=== PATIENT | male | born 1965 | race American Indian/Alaskan Native ===

== ENCOUNTER 2018-10-18 18:32 | Emergency (ER) | payer MEDICARE ==
[2018-10-18] VITALS (7 sets, daily range): BP systolic 106–124; BP diastolic 62–82
[~2018-10-18] VITALS: Ht 170.2 cm; Wt 65.8 kg
[~2018-10-18 18:32] MED LIST: ALPR2TAB5 PO; CEFT1VIA IJ; CEFU500T PO; ENOX30DI SQ; FENT1PAT9 TD; INSU100I19 SQ; INSU100V11 SUBCUT; INSU100V9 SQ; LIPA1CAP12 PO; LISI10TA2 PO; MORP5VIA IV; ONDA2VIA3 IV; OXYC30TA PO; PANT40VI IV
[2018-10-18 19:52] LABS: BASOPHIL % 0.2 % (0.0-0.2); EOSINOPHIL # 0.1 10^3/uL (0.0-0.2); EOSINOPHIL % 1.1 % (0.0-5.0); HEMOGLOBIN 14.4 g/dL (13.9-16.3); LYMPHOCYTES % 12.2 % (24.0-44.0); MEAN CELL HGB 31.4 pg (26-34); MEAN CELL HGB CONCENTRATION 36.5 g/dL (33-37); MEAN CORP VOLUME 86.1 fL (78-100); MEAN PLATELET VOLUME 11.9 fL (7.8-11.0); MONOCYTES # 0.7 10^3/uL (0.3-0.8); MONOCYTES % 8.4 % (5.0-12.0); NEUTROPHIL # 6.6 10^3/uL (1.8-7.7); NEUTROPHILS % 77.9 % (41.0-85.0); PLATELET COUNT 101 10^3/uL (150-400); RED CELL DISTRIBUTION WIDTH 13.4 % (11.5-14.5); WHITE BLOOD CELL 8.4 10^3/uL (4.5-11.0)
[2018-10-18] MEDS ORDERED: PHENERGAN ONE (19:53)
[2018-10-18] MEDS ORDERED: NS 1000ML 1,000 ML ONE (19:53)
[2018-10-18] MEDS ORDERED: NS 100ML 100 ML IV ONE (19:54)
[2018-10-18] MEDS: NS 1000ML 1,000 ML IV ONE (20:05)
[2018-10-18] MEDS: PHENERGAN IV STA (20:05)
[2018-10-18] MEDS: DURAMORPH IV STA ×2 (20:05→21:18)
[2018-10-18 20:07] LABS: CALCIUM 8.9 mg/dL (8.4-10.5); CARBON DIOXIDE 25.4 mmol/L (20.0-32)
--- NOTE | 2018-10-18 21:22 | DIREP ---
PROCEDURE:CT ABDOMEN/PELVIS W/ CONTRAST COMPARISON:[facility] [place], CT, CT ABD/PELVIS W/O, 07/30/2017, 08:10 PM. INDICATIONS:Eval for L perirectal abscess TECHNIQUE:Axial images were created through the abdomen and pelvis with non-ionic intravenous contrast material. No oral contrast was administered. Sagittal and coronal reconstructions were performed from source images. FINDINGS: LUNG BASES:There are 2 stable sub cm nodules in the right middle lobe. LIVER:Normal. No significant liver lesions are identified. BILIARY:Cholecystectomy clips. PANCREAS:Multiple calcifications along an atrophic pancreas, consistent with chronic pancreatitis. SPLEEN:There are several tiny splenic calcifications consistent with benign granulomas. Spleen measures 13.2 cm in craniocaudal length; borderline to mild splenomegaly. ADRENALS:Normal. No mass or enlargement. URINARY TRACT:Normal. No focal lesions or hydronephrosis. AORTA/VASCULAR:Scattered calcifications. No aneurysm. RETROPERITONEUM:Multiple stable calcifications along the left anterior perinephric/dural does fascia likely due to old postinflammatory change. Stable left retroperitoneal fatty area along the inferior lateral aspect of the left kidney. BOWEL/MESENTERY:GI tract not optimally visualized due to lack of oral contrast administration. No intestinal obstruction, free air, or free fluid. Appendix not well demonstrated. No evidence of appendicitis. There is a left perianal fluid collection, 2.9 x 1.9 x 2.4 cm, consistent with abscess. ABDOMINAL WALL:Normal. No mass or hernia. PELVIC ORGANS:Normal. No visible mass. Pelvic organs appropriate for patient age. BONES:Normal for age. No bony lesion or acute fracture. OTHER:Negative. CONCLUSION: 1. There is a left perianal abscess. 2. No definite wall thickening identified in the rectum or other portions the colon. GI tract not optimally visualized due to lack of oral contrast administration. 3. Previous cholecystectomy. 4. Chronic pancreatitis. 5. Stable appearing left retroperitoneal dystrophic calcification and left perinephric fat collection. 6. Stable sub cm right middle lobe nodules. 7. Please see above discussion for details of other findings. Dictated by: Rohit Alexandra M.D. on 10/18/2018 at 09:07 PM
[2018-10-18] MEDS ORDERED: HUMULIN R IV ONE (21:30)
--- NOTE | 2018-10-18 21:31 | NUR ---
KEVIN Dumont CRNA is called out for concious sedation procedure.
--- NOTE | 2018-10-18 21:35 | NUR ---
Consent Consents signed for sedation
--- NOTE | 2018-10-18 21:40 | NUR ---
KEVIN Dumont at patients bedside
--- NOTE | 2018-10-18 21:45 | ER.PDOC ---
General Chief Complaint: Requesting Medical Care Stated Complaint: ABSCESS Time seen by MD: 19:20 Source: patient Exam Limitations: no limitations History of Present Illness Initial Comments Pt notes mildly painful area to left perianal region 6 days ago. Area has become swollen and exquisitely tender since. No fever. Timing/Duration: other (6 days) Severity: severe Location: perirectal Quality: painful Identified Cause: no Prior symptoms/Treatment: No Similar symptoms previous, No Recenly Seen, No Treated by Doctor, No Recently Hospitalized Allergies: Coded Allergies: No Known Allergies (Unverified , 10/26/13) Home Meds Reported Medications Lisinopril (LISINOPRIL) 10 Mg Tablet, 10 MG PO DAILY, TABLET 10/26/13 Insulin Detemir (LEVEMIR) 100 Unit/1 Ml Insuln.pen, 20 UNIT SQ HS 10/26/13 Insulin Glulisine (APIDRA) 100 Unit/1 Ml Vial, 15 UNIT SQ ac, VIAL 10/26/13 Past Medical History Surgical History: knee Social History Drug Use: none Constitutional: no symptoms reported EENTM: no symptoms reported Respiratory: no symptoms reported Cardiovascular: no symptoms reported Gastrointestinal: no symptoms reported Genitourinary: no symptoms reported Musculoskeletal: no symptoms reported Skin: lesions Psychiatric/Neurological: no symptoms reported Endocrine: no symptoms reported Physical Exam General Appearance: alert, moderate distress Skin: warm/dry, nml color, abscess, tender indurated area (L perianal), fluctuant Character: erythematous With: warmth, tenderness, swelling Extremities: non-tender, nml ROM, no edema EENT: eyes nml inspection, lips/gums nml, pharynx nml Neck: trachea midline, no swelling Respiratory: no resp. distress, breath sounds nml CVS: reg. rate & rhythm, heart sounds nml Abdomen: non-tender, no organomegaly Rectal: other (Swollen, red, tender L perianal mass) NEURO/PSYCH: oriented x 3, CN's nml as tested, motor nml, sensation nml, mood/affect nml Incision and Drainage Incision and Drainage : Site: Left perianal Blade Size: 11 I & D Procedure: betadine prep, sterile drapes applied, pack with gauze, probe/break up loculation Progress Procedural sedation supplied by anesthesiologist.during procedure. No complications Results/Orders Results/Orders Orders - KACEY JUNG MD Start Iv (10/18/18 19:26) Cbc With Auto Diff (10/18/18 19:26) Basic Metabolic Panel (10/18/18 19:26) 0.9 % Sodium Chloride (Ns 1000ml) (10/18/18 19:30) Morphine Sulfate/Pf (Duramorph) (10/18/18 19:26) Promethazine Hcl (Phenergan) (10/18/18 19:26) Ct Abd/Pel With Iv Contrast (10/18/18 19:26) 0.9 % Sodium Chloride (Ns 1000ml) (10/18/18 19:53) Promethazine Hcl (Phenergan) (10/18/18 19:53) 0.9 % Sodium Chloride (Ns 100ml) (10/18/18 19:54) Morphine Sulfate/Pf (Duramorph) (10/18/18 20:39) Insulin Regular, Human (Humulin R) (10/18/18 21:30) Administered Medications Medications (Trade) Dose Ordered Sig/Pawan Route PRN Reason Start Time Stop Time Status Last Admin Dose Admin Morphine Sulfate (Duramorph) 4 mg OT STAT IV 10/18/18 19:26 10/18/18 19:36 DC 10/18/18 20:05 4 MG Morphine Sulfate (Duramorph) 4 mg OT STAT IV 10/18/18 20:39 10/18/18 20:41 DC 10/18/18 21:18 4 MG Promethazine HCl (Phenergan) 12.5 mg OT STAT IV 10/18/18 19:26 10/18/18 19:36 DC 10/18/18 20:05 12.5 MG Sodium Chloride 1,000 ml @ 0 mls/hr Q0M ONCE IV 10/18/18 19:30 10/18/18 19:36 DC 10/18/18 20:05 1,000 MLS/HR Laboratory Tests Test 10/18/18 19:40 White Blood Count 8.4 10^3/uL (4.5-11.0) Red Blood Count 4.59 10^6/uL (4.50-5.90) Hemoglobin 14.4 g/dL (13.9-16.3) Hematocrit 39.5 % (37.0-53.0) Mean Corpuscular Volume 86.1 fL (78-100) Mean Corpuscular Hemoglobin 31.4 pg (26-34) Mean Corpuscular Hemoglobin Concent 36.5 g/dL (33-37) Red Cell Distribution Width 13.4 % (11.5-14.5) Platelet Count 101 10^3/uL (150-400) L Mean Platelet Volume 11.9 fL (7.8-11.0) H Neutrophils (%) (Auto) 77.9 % (41.0-85.0) Lymphocytes (%) (Auto) 12.2 % (24.0-44.0) L Monocytes (%) (Auto) 8.4 % (5.0-12.0) Neutrophils # (Auto) 6.6 10^3/uL (1.8-7.7) Lymphocytes # (Auto) 1.0 10^3/uL (1.0-4.8) Monocytes # (Auto) 0.7 10^3/uL (0.3-0.8) Absolute Immature Granulocyte (auto 0.02 10^3 u/L (0-2) Immature Granulocytes % 0.20 % (0.00-0.50) Eosinophils % 1.1 % (0.0-5.0) Basophils % 0.2 % (0.0-0.2) Basophils # 0.0 10^3/uL (0.0-0.1) Eosinophil Count 0.1 10^3/uL (0.0-0.2) Sodium Level 132 mmol/L (132-145) Potassium Level 4.3 mmol/L (3.6-5.2) Chloride Level 97.0 mmol/L (96-109) Carbon Dioxide Level 25.4 mmol/L (20.0-32) Glucose Level 445 mg/dL (70-110) *H Blood Urea Nitrogen 19 mg/dL (7-18) H Creatinine 0.91 mg/dL (0.59-1.40) Calcium Level 8.9 mg/dL (8.4-10.5) Anion Gap 13.9 Estimated GFR () 106.3 (>/=60) BUN/Creatinine Ratio 20.0 Departure Time of Disposition: 22:18 Disposition: 01 HOME, SELF-CARE Impression: Primary Impression: Cutaneous abscess of buttock Condition: Stable Referrals: PCP,UNKNOWN (PCP) PRIMARY CARE PROVIDER Additional Instructions: Rx Bactrim, Tylenol 3. Recheck in 2 days for repack Duration or Time Spent with Pa: 30 KACEY JUNG MD October 18, 2018 21:45
[2018-10-18] MEDS ORDERED: LIDOCAINE 1% VIAL ONE (21:48)
[2018-10-18] MEDS ORDERED: DIPRIVAN IV ONE (21:59)
[2018-10-18] MEDS ORDERED: LIDOCAINE 2% VIAL ONE (22:00)
--- NOTE | 2018-10-18 22:00 | NUR ---
Respiratory Respiratory at patients bedside
[2018-10-18] MEDS ORDERED: NS 500ML 500 ML IV ONE (22:02)
--- NOTE | 2018-10-18 22:09 | NUR ---
Timeout Timeout was called by Tim BROWN
--- NOTE | 2018-10-18 22:10 | NUR ---
Update Dr. Hinojosa started procedue. Patient is stable, RT and [employer]NAGER are at patients bedside.
--- NOTE | 2018-10-18 22:45 | NUR ---
IV IV removed, tip intact. Placed cottonball over IV site. Secured cottonball with coban. Instructed patient to remove coban on the arrival of home. Patient expressed understanding
[2018-10-19 00:03] VITALS: BP 122/68
== END 2018-10-18 22:50 | disposition home or self-care (01) ==
LOC: ER 18:32
DX: K61.0 Anal abscess (principal); Z79.4 Long term (current) use of insulin; Z79.899 Other long term (current) drug therapy
CPT/HCPCS: 36415; 46050; 74177; 80048; 85025; 96374; 96375; 96376; 99156; 99285; J2001 ×2; J2550; J3490; J7030; J7040; J7050; Q9967; 99153; 99157

== ENCOUNTER 2018-10-20 09:29 | Emergency (ER) | payer MEDICARE ==
[~2018-10-20] VITALS: Ht 167.6 cm; Wt 65.8 kg
[2018-10-20 09:47] VITALS: BP 128/84
--- NOTE | 2018-10-20 09:48 | NUR ---
ARRIVAL PATIENT ARRIVED TO [facility] AMBULATORY, HERE FOR WOUND RECHECK, I AND D DONE YESTERDAY AND AND WAS TOLD TO COME BACK TODAY FOR WOUND RECHECK, PATIENT IS CURRENTLY TAKING BACTRIM
--- NOTE | 2018-10-20 09:59 | ER.PDOC ---
General Chief Complaint: Wound Recheck/Suture Removal Stated Complaint: WOUND CARE Time seen by MD: 09:50 Source: patient Exam Limitations: no limitations History of Present Illness Initial Procedure Done In ER: yes Treated In Another ED/Practice: No Previous ED Treatment: I&D of abscess Antobiotics Given: prescription Symptoms Since Procedure: no complaints Allergies: Coded Allergies: No Known Allergies (Unverified , 10/26/13) Home Meds Reported Medications Lisinopril (LISINOPRIL) 10 Mg Tablet, 10 MG PO DAILY, TABLET 10/26/13 Insulin Detemir (LEVEMIR) 100 Unit/1 Ml Insuln.pen, 20 UNIT SQ HS 10/26/13 Insulin Glulisine (APIDRA) 100 Unit/1 Ml Vial, 15 UNIT SQ ac, VIAL 10/26/13 Past Medical History Medical History: cardiac problems, diabetes Surgical History: cholecystectomy, knee Social History Smoking: non-smoker Alcohol Use: none Drug Use: none Skin: see HPI All Other Systems: Reviewed and Negative Physical Exam General Appearance: alert, no distress Neuro/Vascular/Tendon: no vascular compromise, sensation nml, no tendon injury, nml ROM Skin: healing wound, healing cellulitis, healing abscess Head/ENT: nml inspection, pharynx nml Neck/Back: nml inspection, non-tender, painless ROM Respiratory: chest non-tender, no resp. distress, breath sounds nml CVS: reg. rate & rhythm, heart sounds nml Abdomen: non-tender, no organomegaly Results/Orders Results/Orders Vital Signs Date Time Temp Pulse Resp B/P (MAP) Pulse Ox O2 Delivery O2 Flow Rate FiO2 10/20/18 09:47 97.6 79 18 128/84 (99) 96 Room Air 97.6 10/20/18 09:45 97.6 79 18 96 Room Air 97.6 10/20/18 09:44 97.6 79 18 97.6 Departure Time of Disposition: 09:58 Disposition: 01 HOME, SELF-CARE Impression: Primary Impression: Abscess Additional Impression: Wound check, abscess Condition: Stable Patient Instructions: Abscess, Care After, Abscess, [id number] Referrals: PCP,UNKNOWN (PCP) PRIMARY CARE PROVIDER Duration or Time Spent with Pa: NAIN GROVE MD October 20, 2018 09:59
[2018-10-20 10:03] VITALS: BP 128/84
== END 2018-10-20 10:04 | disposition home or self-care (01) ==
LOC: ER 09:29
DX: K61.0 Anal abscess (principal); E11.9 Type 2 diabetes mellitus without complications; Z79.4 Long term (current) use of insulin; Z79.899 Other long term (current) drug therapy; Z90.49 Acquired absence of other specified parts of digestive tract
CPT/HCPCS: 99281